=== PATIENT | female | born 1945 | race Caucasian/White ===

== ENCOUNTER 2020-03-03 18:34 | Inpatient (IN) | payer MEDICARE, BC ==
[~2020-03-03] VITALS: Ht 167.6 cm; Wt 71.9 kg
--- NOTE | 2020-03-04 01:25 | NUR ---
TELE ADMIT from [facility]. MD already contacted for admit orders. Patient is A&O X's 4 with no s/s of distress and reports no pain. Educated patient on POC/to use call light when in need of any assistance and oriented patient to unit: call light/tv/remote/lights. patient verbalized understanding. Patient's diaper was removed and reviewed policy with her. Patient verbalized understanding. Bed is in lowest/locked position with side rails up X's 2 and call light is within reach of patient. Bed alarm is on. 20G to left forearm flushed with NS. Will continue care.
[2020-03-04] MEDS ORDERED: MORPHINE SULF INJ 2 MG/ML SYRINGE 1ML IV PRN (03:00)
[2020-03-04] MEDS ORDERED: NITROGLYCERIN 0.4 MG SL TAB SL PRN (03:00)
[2020-03-04] MEDS ORDERED: DEXTROSE (50%) 50ML SYRG IV PRN (03:00)
[2020-03-04] MEDS: SODIUM CHLORIDE 0.9% 1,000 ML IV SCH ×2 (03:21→16:02)
[2020-03-04 03:30] VITALS: BP 119/66
[2020-03-04] MEDS ORDERED: cefTRIAXone 1GM/50ML D5W 50 ML IV SCH (04:00)
[2020-03-04] MEDS ORDERED: AZITHROMYCIN 500MG/ 250ML 250 ML IV SCH (04:00)
[2020-03-04] MEDS ORDERED: EMPA1TAB PO (04:09)
[2020-03-04] MEDS ORDERED: LORA0.5T20 PO (04:09)
[2020-03-04] MEDS ORDERED: METF-370 PO (04:09)
[2020-03-04 05:00] VITALS: BP 122/60
--- NOTE | 2020-03-04 05:13 | NUR ---
MRSA SWAB obtained and sent to lab via bullet system
--- NOTE | 2020-03-04 05:14 | NUR ---
TANMAY DAMIAN SWAB obtained by this RN. refinery operator helper cracking unit will walk it to lab
[2020-03-04] MEDS: ACCU-CHEK COMFORT CURVE STRIP VI SCH ×4 (06:40→21:14)
[2020-03-04] MEDS: InsuLIN REG 1unit/0.01ml Soln (100units/ml) SC SCH ×4 (06:40→21:16)
--- NOTE | 2020-03-04 06:40 | NUR ---
IV insertion IV access obtained, via clean sterile technique by inserting 22 gauge catheter at RIGHT WRIST after ONE attempt. IV secured properly. No trauma to site. Patient tolerated well.
--- NOTE | 2020-03-04 06:41 | NUR ---
IV removal 18g AT RIGHT FA NOTED TO LEAK. IV DC'd with clean sterile technique, catheter fully intact. Pressure dressing applied to site. Patient tolerated well.
[2020-03-04 07:01] LABS: Basophils # (auto) 0 10 ^3/uL (0-0.2); Basophils % (auto) 0.3 % (0.0-2.0); Eosinophils # (auto) 0.1 10 ^3/uL (0-0.8); Eosinophils % (auto) 0.8 % (0.0-7.0); Hemoglobin 10.9 g/dL (12.2-16.2); Lymphocytes # (auto) 0.4 10 ^3/uL (0.4-5.4); Lymphocytes % (auto) 6.1 % (10.0-50.0); Mean Corpuscular Hemoglobin 31.5 pg (28.0-32.0); Mean Corpuscular Hgb Conc. 34.2 g/dL (32.0-36.0); Mean Corpuscular Volume 91.9 fL (80.0-100.0); Monocytes # (auto) 0.5 10 ^3/uL (0-1.3); Monocytes % (auto) 6.9 % (0.0-12.0); Neutrophils # (auto) 5.7 10 ^3/uL (1.6-8.6); Neutrophils % (auto) 85.9 % (37.0-80.0); Nucleated Red Blood Cells % 0.1 %; Platelet Count (auto) 104 10^3/uL (140-450); Red Blood Cells 3.48 10^6/uL (4.0-5.20); Red Cell Distribution Width 15.5 % (11.8-14.3); White Blood Cell 6.7 10^3/uL (4.4-10.8)
[2020-03-04 07:04] LABS: Chloride 113 mmol/L (98-107); Potassium 3.6 mmol/L (3.5-5.1); Sodium 139 mmol/L (136-145)
[2020-03-04 07:18] LABS: Alanine Aminotransferase 8 U/L (13-56); Albumin 1.9 g/dL (3.4-5.0); Alkaline Phosphatase 74 U/L (45-117); Anion Gap 8 (5-15); Aspartate Aminotransferase < 3 U/L (15-37); Bilirubin, Total 0.5 mg/dL (0.2-1.0); Blood Urea Nitrogen 23 mg/dL (7-18); Calcium 7.3 mg/dL (8.5-10.1); Carbon Dioxide 18 mmol/L (21-32); GFR African American 76 mL/min; GFR Non-African American 63 mL/min; Glucose 277 mg/dL (74-106); Total Protein 5.3 g/dL (6.4-8.2)
[2020-03-04 08:00] VITALS: BP 123/65
--- NOTE | 2020-03-04 08:20 | NUR ---
called lab for covid swab.
[2020-03-04] MEDS: cefTRIAXone 1GM/50ML D5W 50 ML IV SCH (08:27)
--- NOTE | 2020-03-04 09:00 | NUR ---
Dr Lancaster at bedside.
--- NOTE | 2020-03-04 09:35 | NUR ---
COVID SWAB SENT BY LUZ MARIA SMITH TO LAB.
[2020-03-04] MEDS: AZITHROMYCIN 500MG/ 250ML 250 ML IV SCH (10:17)
[2020-03-04 12:00] VITALS: BP 118/64
[2020-03-04 17:00] VITALS: BP 133/70
--- NOTE | 2020-03-04 18:30 | NUR ---
Angelica SR. PRICING ANALYST at bedside.
--- NOTE | 2020-03-04 19:35 | NUR ---
OPENING NOTE Received report from day shift RN. Patient is A&O X's 3-4 with no s/s of distress and reports no pain. Patient unable to tell me date/year and was reoriented. Educated patient on POC and to use call light when in need of any assistance. Patient verbalized understanding. Bed is in lowest/locked position with side rails up X's 2 and call light is within reach of patient. Bed alarm set for safety. HOB elevated. Patient drinking water at this time. Patient has dinner at bedside. She reports she is not hungry right now but will eat later. Patient is receiving 2L O2 via [place]. Patient placed on continuous pulse ox. Saturation is at 97%. Will continue care.
[2020-03-04] MEDS: PANTOPRAZOLE 40 MG/10 ML VIAL INJ IV SCH (21:07)
[2020-03-04 22:07] VITALS: BP 132/72
[2020-03-05 05:00] VITALS: BP 129/64
[2020-03-05] MEDS: SODIUM CHLORIDE 0.9% 1,000 ML IV SCH ×2 (05:48→19:00)
--- NOTE | 2020-03-05 06:02 | NUR ---
LOW GRADE FEVER Patient has a temperature of 100.0. Cooling measures initiated.
[2020-03-05] MEDS: InsuLIN REG 1unit/0.01ml Soln (100units/ml) SC SCH ×4 (06:51→21:06)
[2020-03-05] MEDS: ACCU-CHEK COMFORT CURVE STRIP VI SCH ×4 (06:55→21:04)
--- NOTE | 2020-03-05 07:06 | NUR ---
Respiratory note: PT IS RESTING COMFORTABLY. NO RESPIRATORY DISTRESS NOTED. SPO2 98% ON 2L NC, HR 84, RR 18, BS CLEAR/DIMINISHED BILATERALLY. NO FURTHER RESPIRATORY INTERVENTIONS INDICATED. WILL CONTINUE TO MONITOR PT.
--- NOTE | 2020-03-05 07:30 | NUR ---
OPENING NOTE ASSUMED CARE PT. ALERT AND ORIENTED. NO S/S OF SOB/DISTRESS NOTED. BED SET TO LOWEST POSITION/LOCKED. BEDSIDE RAILS UP X2. CALL LIGHT WITHIN REACH. INSTRUCTED PATIENT TO CALL FOR ASSISTANCE. PATIENT VERBALIZED UNDERSTANDING. WILL CONTINUE TO MONITOR Q1HR AND PRN.
[2020-03-05 08:00] VITALS: BP 121/55
--- NOTE | 2020-03-05 09:00 | NUR ---
MD DR. RAPHAEL AT BESIDE. DISCUSSED POC WITH PATIENT. NEW ORDERS GIVE/CARRIED OUT.
[2020-03-05] MEDS ORDERED: AMIODARONE 450mg/250ml AE 250 ML IV SCH ×4 (09:05→15:05)
--- NOTE | 2020-03-05 09:05 | NUR ---
COVID SWAB RESULTS PLEASE CALL DR. RAPHAEL WITH COVID RESULT IF NEGATIVE.
[2020-03-05] MEDS: cefTRIAXone 1GM/50ML D5W 50 ML IV SCH (09:57)
[2020-03-05] MEDS: PANTOPRAZOLE 40 MG/10 ML VIAL INJ IV SCH ×2 (09:57→21:02)
[2020-03-05] MEDS: AZITHROMYCIN 500MG/ 250ML 250 ML IV SCH (09:58)
[2020-03-05 10:45] LABS: Basophils # (auto) 0.1 10 ^3/uL (0-0.2); Basophils % (auto) 0.9 % (0.0-2.0); Eosinophils # (auto) 0 10 ^3/uL (0-0.8); Eosinophils % (auto) 0.3 % (0.0-7.0); Hematocrit 30.4 % (36.0-46.0); Hemoglobin 10.3 g/dL (12.2-16.2); Lymphocytes # (auto) 0.7 10 ^3/uL (0.4-5.4); Lymphocytes % (auto) 5.9 % (10.0-50.0); Mean Corpuscular Hgb Conc. 33.9 g/dL (32.0-36.0); Mean Corpuscular Volume 91.4 fL (80.0-100.0); Monocytes # (auto) 0.7 10 ^3/uL (0-1.3); Neutrophils # (auto) 9.9 10 ^3/uL (1.6-8.6); Neutrophils % (auto) 86.9 % (37.0-80.0); Nucleated Red Blood Cells % 0.1 %; Platelet Count (auto) 81 10^3/uL (140-450); Red Blood Cells 3.33 10^6/uL (4.0-5.20); White Blood Cell 11.4 10^3/uL (4.4-10.8)
[2020-03-05 11:37] LABS: Albumin 1.8 g/dL (3.4-5.0); Calcium 7.4 mg/dL (8.5-10.1); Magnesium 1.8 mg/dL (1.6-2.6); Potassium 3.6 mmol/L (3.5-5.1)
[2020-03-05 11:41] LABS: BUN/Creatinine Ratio 19.3; Bilirubin, Total 0.5 mg/dL (0.2-1.0); Total Protein 5.1 g/dL (6.4-8.2)
--- NOTE | 2020-03-05 16:10 | NUR ---
Assessment Patient is a 74-year-old female who is alert and oriented. Prior to admission patient live home alone and functioned with assistance. Per patient her neighbor Andra helps her with her ADLs. Patient informed me she has two walkers and one cane for home use. Per patient she feels safe returning home. Per patient she will return to her prior living arrangements post discharge and will need a [employer] Voucher. Advised patient there is a social service consult for home health safety evaluation. Information and choice letter was given to patient. Patient did not have a home health preference. Informed patient clinical information will be faxed to [facility]. Informed patient she has the right to participate in all discharge planning. Patient verbalized understanding and agreed to discharge plan. Faxed clinical information to [facility]. Per Marylou with [facility] patient has been accepted and service to start within 24-48hrs upon d/c day. Addendum: 03/05/20 at 1611 by CANDI CASTANEDA Amended: Links added.
--- NOTE | 2020-03-05 16:54 | NUR ---
INFORMED DR. LARSON OF COVID RESULTS.
--- NOTE | 2020-03-05 17:34 | NUR ---
REPORT GIVEN TO WILL MORALES. PATIENT TRANSFERRED TO ROOM 214 B VIA BED. NO S/S SOB/DISTRESS NOTED.
--- NOTE | 2020-03-05 17:40 | NUR ---
TELE THIS NURSE INFORMED DIGITAL MEDIA ANALYST MONITOR PATIENT TRANSFERRED TO ROOM 214 B WITH NURSE MORALES.
[2020-03-05] MEDS: AMIODARONE 450mg/250ml AE 250 ML IV SCH (18:16)
[2020-03-05 18:27] LABS: Urine Bacteria NONE SEEN /hpf (None Seen); Urine Blood 3+ /uL (Negative); Urine Mucus FEW (None Seen); Urine Specific Gravity 1.015 (1.001-1.035); Urine WBC 777 /hpf (0 - 5)
--- NOTE | 2020-03-05 21:00 | NUR ---
Family updated on pt status Cousin Nathaly of [place] updated on patient's status and condition. did not give any information.no password created.pt stated she doesnt know Nathaly
[2020-03-05] MEDS: DOCUSATE SOD 100 MG CAP PO SCH ×2 (21:03→21:20)
[2020-03-05 21:28] VITALS: BP 126/63
--- NOTE | 2020-03-05 22:32 | NUR ---
pt's IV went bad. tried to start an new IV but pt is refusing and became angry. will try again to convince her later
--- NOTE | 2020-03-05 23:19 | NUR ---
paged Dr. Dominguez regarding pt's amiodarone drip. pt is refusing IV insertion. educated on importance of iv and drip but refused. alert and oriented and bacame irritated.
--- NOTE | 2020-03-06 00:13 | NUR ---
txted Dr. Dominguez. informed on pt's status. pt is hardstick and refusing iv insertion. CN made aware
--- NOTE | 2020-03-06 00:55 | NUR ---
Called/paged Dr. LEMUS called re:PT REFUSING IV ACCESS AND ON AMIODARONE GTT . Waiting for call back. Continue care.
--- NOTE | 2020-03-06 00:57 | NUR ---
returned call Dr. LEMUS returned call, updated on patient status and reason for call, per MD pt needs to have an IV access, ordered amiodarone po x 1 and midline.Carried out. Will inform primary RN Makil regarding orders and to attempt another IV once pt agrees. Continue care.
--- NOTE | 2020-03-06 01:02 | NUR ---
NOTIFIED FANTA RE: DR. LEMUS'S ORDERS. VERBALIZES UNDERSTANDING.
[2020-03-06] MEDS ORDERED: AMIODARONE HCL 200 MG TAB PO ONE (01:15)
--- NOTE | 2020-03-06 01:30 | NUR ---
IV removal IV DC'd with sterile technique, catheter fully intact. Pressure dressing applied to site. Patient tolerated procedure well.
--- NOTE | 2020-03-06 05:30 | NUR ---
pt is asking for pain med for her back, score of 6. texted Dr. Dominguez, awaiting for orders
[2020-03-06 06:00] VITALS: BP 128/67
[2020-03-06] MEDS: ACCU-CHEK COMFORT CURVE STRIP VI SCH ×4 (06:25→21:45)
[2020-03-06] MEDS: InsuLIN REG 1unit/0.01ml Soln (100units/ml) SC SCH ×4 (06:27→21:46)
[2020-03-06] MEDS: SODIUM CHLORIDE 0.9% 1,000 ML IV SCH ×2 (08:20→21:13)
--- NOTE | 2020-03-06 08:27 | NUR ---
AT BEDSIDE DR LARSON AT BEDSIDE UPDATING PATIENT AND FAMILY ON POC. BOTH VERBALIZED UNDERSTANDING.
[2020-03-06] MEDS: cefTRIAXone 1GM/50ML D5W 50 ML IV SCH (08:41)
[2020-03-06 09:00] VITALS: BP 130/67
--- NOTE | 2020-03-06 09:00 | NUR ---
Midline Placement: Patient educated on need for midline placement. All risks and benefits explained and all questions and concerns addresses prior to procedure. 18g/8cm midline inserted via right basilic vein using Ultrasound. Sterile technique utilized. Blood return obtained from THE SINGLE lumen and flushed easily with NS using proper technique. Midline secured with saline lock; biodisc and occlusive dressing applied. Primary RN Sue notified. Midline lot # [id number]
[2020-03-06 09:14] LABS: Basophils # (auto) 0.1 10 ^3/uL (0-0.2); Basophils % (auto) 0.5 % (0.0-2.0); Eosinophils # (auto) 0 10 ^3/uL (0-0.8); Eosinophils % (auto) 0.1 % (0.0-7.0); Hematocrit 31.2 % (36.0-46.0); Hemoglobin 10.5 g/dL (12.2-16.2); Lymphocytes # (auto) 0.3 10 ^3/uL (0.4-5.4); Lymphocytes % (auto) 1.8 % (10.0-50.0); Mean Corpuscular Hemoglobin 30.9 pg (28.0-32.0); Mean Corpuscular Hgb Conc. 33.6 g/dL (32.0-36.0); Mean Corpuscular Volume 91.9 fL (80.0-100.0); Monocytes # (auto) 0.6 10 ^3/uL (0-1.3); Monocytes % (auto) 3.9 % (0.0-12.0); Neutrophils # (auto) 13.8 10 ^3/uL (1.6-8.6); Neutrophils % (auto) 93.7 % (37.0-80.0); Nucleated Red Blood Cells % 0.1 %; Platelet Count (auto) 121 10^3/uL (140-450); Red Blood Cells 3.39 10^6/uL (4.0-5.20); Red Cell Distribution Width 15.4 % (11.8-14.3); White Blood Cell 14.7 10^3/uL (4.4-10.8)
[2020-03-06 09:29] LABS: INR 1.05 (0.9-1.15)
[2020-03-06 09:32] LABS: Albumin 1.9 g/dL (3.4-5.0); Calcium 7.8 mg/dL (8.5-10.1); Magnesium 1.7 mg/dL (1.6-2.6); Potassium 3.3 mmol/L (3.5-5.1)
[2020-03-06 09:36] LABS: BUN/Creatinine Ratio 16.7; Bilirubin, Total 0.4 mg/dL (0.2-1.0); Total Protein 5.5 g/dL (6.4-8.2)
[2020-03-06] MEDS: AZITHROMYCIN 500MG/ 250ML 250 ML IV SCH (10:00)
[2020-03-06] MEDS: AMIODARONE 450mg/250ml AE 250 ML IV SCH ×2 (10:03→23:09)
[2020-03-06] MEDS: PANTOPRAZOLE 40 MG/10 ML VIAL INJ IV SCH ×2 (10:04→21:44)
[2020-03-06] MEDS: DOCUSATE SOD 100 MG CAP PO SCH ×2 (10:04→21:45)
[2020-03-06 13:00] VITALS: BP 126/69
[2020-03-06] MEDS: AMIODARONE HCL 200 MG TAB PO SCH ×2 (14:28→21:44)
[2020-03-06 17:00] VITALS: BP 112/57
--- NOTE | 2020-03-06 19:30 | NUR ---
Opening Shift Note Assumed care of patient, awake and alert. No S/S of distress/SOB or pain. Instructed on POC and to call for assist PRN, will continue to monitor for changes Q1hr and PRN.
[2020-03-06 22:00] VITALS: BP 113/60
--- NOTE | 2020-03-06 23:00 | NUR ---
pt signed the consent for tomorrow's procedure.
[2020-03-07] MEDS: AMIODARONE HCL 200 MG TAB PO SCH ×4 (04:28→21:55)
[2020-03-07 05:00] VITALS: BP 111/65
[2020-03-07] MEDS: ACCU-CHEK COMFORT CURVE STRIP VI SCH ×4 (06:00→21:57)
[2020-03-07] MEDS: InsuLIN REG 1unit/0.01ml Soln (100units/ml) SC SCH ×4 (06:23→21:43)
[2020-03-07 07:18] LABS: Basophils # (auto) 0 10 ^3/uL (0-0.2); Basophils % (auto) 0.4 % (0.0-2.0); Eosinophils # (auto) 0 10 ^3/uL (0-0.8); Eosinophils % (auto) 0.9 % (0.0-7.0); Hematocrit 27.7 % (36.0-46.0); Hemoglobin 9.5 g/dL (12.2-16.2); Lymphocytes # (auto) 0.5 10 ^3/uL (0.4-5.4); Lymphocytes % (auto) 10.7 % (10.0-50.0); Mean Corpuscular Hemoglobin 31.4 pg (28.0-32.0); Mean Corpuscular Hgb Conc. 34.1 g/dL (32.0-36.0); Monocytes # (auto) 0.4 10 ^3/uL (0-1.3); Monocytes % (auto) 8.6 % (0.0-12.0); Neutrophils # (auto) 3.9 10 ^3/uL (1.6-8.6); Neutrophils % (auto) 79.4 % (37.0-80.0); Nucleated Red Blood Cells % 0.1 %; Platelet Count (auto) 95 10^3/uL (140-450); Red Blood Cells 3.01 10^6/uL (4.0-5.20); Red Cell Distribution Width 15.2 % (11.8-14.3); White Blood Cell 4.9 10^3/uL (4.4-10.8)
--- NOTE | 2020-03-07 07:35 | NUR ---
Off Unit Patient left unit for laborer brush clearing, awake, alert, and oriented.
[2020-03-07 07:44] LABS: Potassium 3.7 mmol/L (3.5-5.1)
[2020-03-07 07:45] LABS: BUN/Creatinine Ratio 15.4; Calcium 7.7 mg/dL (8.5-10.1); Magnesium 1.9 mg/dL (1.6-2.6)
--- NOTE | 2020-03-07 07:47 | NUR ---
brought the pt down to cathlab. Endorsed care to day RN, no sign of distress at this time
[2020-03-07] MEDS ORDERED: IOHEXOL 350 MG/ML 100ML IJ ONE (08:10)
[2020-03-07] MEDS ORDERED: LIDOCAINE 2%HCL (LOCAL ANESTH.) INJ 20ML MDV ONE (08:10)
[2020-03-07] MEDS ORDERED: fentaNYL CITRATE 100 MCG/2 ML VL ONE (08:27)
[2020-03-07] MEDS ORDERED: VERAPAMIL 2.5MG/ML INJ 2ML VIAL IV ONE (08:27)
[2020-03-07] MEDS ORDERED: HEPARIN SODIUM (PORCINE) 5000 UNITS/ML 1ML VIAL ONE (08:27)
[2020-03-07] MEDS ORDERED: ANGIOMAX 250 MG VIAL IV ONE (08:27)
[2020-03-07] MEDS ORDERED: MIDAZOLAM HCL 1MG/1ML-2 ML VIAL ONE (08:28)
[2020-03-07] MEDS ORDERED: SODIUM CHL 0.9% 50 ML ONE ×2 (08:28→09:04)
[2020-03-07] MEDS ORDERED: ADENOSINE 90 MG/30 ML INJ IV ONE (09:04)
--- NOTE | 2020-03-07 09:40 | NUR ---
Pt. received in Satellite Installation Technician Post-Op awake, drowsy but arousable, oriented to person, place and event. Pt. in supine position and moves all extremities spontaneously. Respirations even and unlabored. RIGHT wrist VASC band intact with no visible bleeding or oozing at radial puncture site. RIGHT groin soft with dressing CDI. Pt. keeps RIGHT leg straight as instructed. RLE pulses to DP and PT are palpable 2+. Instructed re: procedure outcome and plan of care; pt. verbalized understanding and is compliant, stating that she is thirsty and hungry. NAD noted.
--- NOTE | 2020-03-07 10:00 | NUR ---
RT groin and RT wrist VASC band site unchanged. Respirations eupneic. Pt. continues to deny discomfort and tolerated water well. IV NS lock to LEFT hand intact; site benign. NAD noted.
--- NOTE | 2020-03-07 10:29 | NUR ---
SBAR report given to WILL Easton. Pt. remains stable for transfer back to room. RT groin and RT wrist VASC band benign. Pt. states feels "okay." NAD noted.
--- NOTE | 2020-03-07 10:46 | NUR ---
Pt. remains awake and quiet and stable for transfer back to room with assist by timothy Cardenas. RT wrist and RT groin unchanged. Pt. endorsed to WILL Easton.
--- NOTE | 2020-03-07 10:50 | NUR ---
On Unit Patient brought back to unit from analytical laboratory technician. Patient is awake but drowsy. Call light placed within reach for safety, bed alarm on and patient encouraged to call for assistance. Dressing to right groin dry and intact. Patient to lay flat until 1130. Vasc Band on to right wrist, deflation to begin. No complaints of pain at this time. Will continue to monitor.
[2020-03-07] MEDS: PANTOPRAZOLE 40 MG/10 ML VIAL INJ IV SCH ×2 (11:04→21:55)
[2020-03-07] MEDS: DOCUSATE SOD 100 MG CAP PO SCH ×2 (11:05→21:55)
[2020-03-07] MEDS: AZITHROMYCIN 500MG/ 250ML 250 ML IV SCH (11:05)
[2020-03-07] MEDS: cefTRIAXone 1GM/50ML D5W 50 ML IV SCH (11:05)
[2020-03-07] MEDS: SODIUM CHLORIDE 0.9% 1,000 ML IV SCH (11:07)
[2020-03-07 13:00] VITALS: BP 132/67
[2020-03-07 13:25] VITALS: BP 120/68
--- NOTE | 2020-03-07 14:00 | NUR ---
Amiodarone Dose given at 1118
--- NOTE | 2020-03-07 14:16 | NUR ---
Nutrition Assessment Notes Please refer to link for full assessment notes. Est Energy needs: 1217-1671 kcals (20-23 kcal/kgBW) Est Protein needs: 66-72 gms/day (1.0-1.1 gm/kgBW) Will continue to monitor and reassess prn. Addendum: 03/07/20 at [address] Amended: Links added.
[2020-03-07] MEDS: SODIUM CHLOR 0.9% PF (SALINE LOCK) 10ML VIAL/SYR IV SCH ×2 (14:57→21:56)
--- NOTE | 2020-03-07 15:20 | NUR ---
Foreign Body in Rectum Patient had a bowel movement, a coin was reportedly seen in stool by the GI doctor and RN covering while at lunch. GI MD did not continue to do rectal examination since coin was passed. Patient uncomplaining.
[2020-03-07 17:00] VITALS: BP 134/72
[2020-03-07] MEDS: AMIODARONE 450mg/250ml AE 250 ML IV SCH (17:44)
[2020-03-07 21:19] VITALS: BP 114/59
[2020-03-07] MEDS: HYDROcodone-ACET 5/325MG TAB PO PRN (21:56)
[2020-03-08] MEDS: SODIUM CHLORIDE 0.9% 1,000 ML IV SCH ×2 (00:20→17:01)
[2020-03-08 04:42] VITALS: BP 110/53
[2020-03-08] MEDS: AMIODARONE HCL 200 MG TAB PO SCH ×3 (06:00→21:58)
[2020-03-08] MEDS: SODIUM CHLOR 0.9% PF (SALINE LOCK) 10ML VIAL/SYR IV SCH ×3 (06:00→21:58)
[2020-03-08 06:40] LABS: Basophils # (auto) 0 10 ^3/uL (0-0.2); Basophils % (auto) 0.8 % (0.0-2.0); Eosinophils # (auto) 0.1 10 ^3/uL (0-0.8); Eosinophils % (auto) 1.4 % (0.0-7.0); Hematocrit 29.4 % (36.0-46.0); Lymphocytes # (auto) 0.6 10 ^3/uL (0.4-5.4); Lymphocytes % (auto) 13.5 % (10.0-50.0); Mean Corpuscular Hemoglobin 31.3 pg (28.0-32.0); Mean Corpuscular Hgb Conc. 34.1 g/dL (32.0-36.0); Mean Corpuscular Volume 91.9 fL (80.0-100.0); Monocytes # (auto) 0.3 10 ^3/uL (0-1.3); Monocytes % (auto) 7.9 % (0.0-12.0); Neutrophils # (auto) 3.2 10 ^3/uL (1.6-8.6); Neutrophils % (auto) 76.4 % (37.0-80.0); Platelet Count (auto) 104 10^3/uL (140-450); Red Blood Cells 3.19 10^6/uL (4.0-5.20); White Blood Cell 4.1 10^3/uL (4.4-10.8)
[2020-03-08] MEDS: ACCU-CHEK COMFORT CURVE STRIP VI SCH ×4 (06:51→22:04)
[2020-03-08 06:52] LABS: BUN/Creatinine Ratio 14.9; Calcium 7.9 mg/dL (8.5-10.1); Magnesium 1.6 mg/dL (1.6-2.6); Potassium 3.7 mmol/L (3.5-5.1)
[2020-03-08] MEDS: InsuLIN REG 1unit/0.01ml Soln (100units/ml) SC SCH ×4 (06:59→22:07)
--- NOTE | 2020-03-08 07:45 | NUR ---
Opening note Assumed care of patient from NOC RN. Patient is AOx4 no s/s of distress or SOB noted. Patient is on 2l via nasal cannula, bed is in lowest locked position, side rails up x2 and call light is within reach. Updated patient on plan of care and patient verbalized understanding. Will continue to monitor.
[2020-03-08 09:00] VITALS: BP 127/66
[2020-03-08] MEDS: cefTRIAXone 1GM/50ML D5W 50 ML IV SCH (09:25)
[2020-03-08] MEDS: AMIODARONE 450mg/250ml AE 250 ML IV SCH ×2 (09:25→21:57)
[2020-03-08] MEDS: PANTOPRAZOLE 40 MG/10 ML VIAL INJ IV SCH ×2 (09:26→21:58)
[2020-03-08] MEDS: DOCUSATE SOD 100 MG CAP PO SCH ×2 (09:26→22:04)
--- NOTE | 2020-03-08 11:30 | NUR ---
Physician rounding Dr. Lancaster at nurses station. Per MD patient can be D/C'd with cordarone 200mg BID. Per MD Primary MD can send patient on that medication. Will relay message to MD when Dr. olguin rounds.
[2020-03-08] MEDS ORDERED: AMIODARONE HCL 200 MG TAB PO SCH (11:45)
[2020-03-08] MEDS: AZITHROMYCIN 500MG/ 250ML 250 ML IV SCH (12:56)
[2020-03-08 13:10] VITALS: BP 133/70
[2020-03-08 16:44] VITALS: BP 139/68
--- NOTE | 2020-03-08 19:30 | NUR ---
Opening note Assumed care of patient from morning shift RN. Patient is AOx4 no s/s of distress or SOB noted. Patient is on 2l via nasal cannula, bed is in lowest locked position, side rails up x2 and call light is within reach. Updated patient on plan of care and patient verbalized understanding. Will continue to monitor.
[2020-03-08] MEDS: HYDROcodone-ACET 5/325MG TAB PO PRN (20:08)
--- NOTE | 2020-03-08 20:10 | NUR ---
Lower Back Pain patient complains of lower back pain. Gave pain medication as prescribed PRN and repositioned patient on left side to relieve back pain. Will continue to monitor.
[2020-03-08 23:41] VITALS: BP 127/82
[2020-03-09] MEDS: SODIUM CHLORIDE 0.9% 1,000 ML IV SCH ×2 (03:30→16:20)
[2020-03-09 05:33] VITALS: BP 146/66
[2020-03-09] MEDS: SODIUM CHLOR 0.9% PF (SALINE LOCK) 10ML VIAL/SYR IV SCH ×3 (05:51→22:14)
[2020-03-09] MEDS: ACCU-CHEK COMFORT CURVE STRIP VI SCH ×4 (06:33→22:14)
[2020-03-09] MEDS: InsuLIN REG 1unit/0.01ml Soln (100units/ml) SC SCH ×4 (06:37→22:17)
[2020-03-09 06:46] LABS: Basophils # (auto) 0 10 ^3/uL (0-0.2); Basophils % (auto) 0.6 % (0.0-2.0); Eosinophils # (auto) 0.1 10 ^3/uL (0-0.8); Eosinophils % (auto) 1.2 % (0.0-7.0); Hematocrit 30.1 % (36.0-46.0); Hemoglobin 10.4 g/dL (12.2-16.2); Lymphocytes # (auto) 0.5 10 ^3/uL (0.4-5.4); Lymphocytes % (auto) 7.5 % (10.0-50.0); Mean Corpuscular Hemoglobin 31.5 pg (28.0-32.0); Mean Corpuscular Hgb Conc. 34.4 g/dL (32.0-36.0); Mean Corpuscular Volume 91.5 fL (80.0-100.0); Monocytes # (auto) 0.4 10 ^3/uL (0-1.3); Monocytes % (auto) 5.9 % (0.0-12.0); Neutrophils # (auto) 6.2 10 ^3/uL (1.6-8.6); Neutrophils % (auto) 84.8 % (37.0-80.0); Nucleated Red Blood Cells % 0.1 %; Platelet Count (auto) 125 10^3/uL (140-450); Red Blood Cells 3.29 10^6/uL (4.0-5.20); Red Cell Distribution Width 15.1 % (11.8-14.3); White Blood Cell 7.3 10^3/uL (4.4-10.8)
[2020-03-09 07:13] LABS: Calcium 7.6 mg/dL (8.5-10.1); Magnesium 1.7 mg/dL (1.6-2.6); Potassium 3.5 mmol/L (3.5-5.1)
[2020-03-09 07:16] LABS: BUN/Creatinine Ratio 15.9
--- NOTE | 2020-03-09 07:30 | NUR ---
Opening note Assumed care of patient from NOC WILL Cortez. Patient is AOx4 no s/s of distress or SOB noted. Patient is on 2l via nasal cannula, bed is in lowest locked position, side rails up x2 and call light is within reach. Updated patient on plan of care and patient verbalized understanding. Will continue to monitor.
--- NOTE | 2020-03-09 08:00 | NUR ---
patient status patient complaint of Hector, patient stated "I want the catheter out, it hurts and i want it out!" Educated patient regarding the use of hector and that it cannot be removed without physician order. Educated patient that attending physician will be notified. Patient verbalized understanding.
[2020-03-09 09:00] VITALS: BP 152/62
--- NOTE | 2020-03-09 09:01 | NUR ---
Physician rounding Dr. Lancaster at nurses station. Per MD patient is clear cardio silva, and is recommending patient follow up with GI out patient. MD also recommends hector removal per primary team guidance. Will notify attending MD. New orders received will follow thorough.
--- NOTE | 2020-03-09 09:22 | NUR ---
left message to Left message to Dr. Dominguez regarding patient status. Awaiting call back.
[2020-03-09] MEDS: PANTOPRAZOLE 40 MG/10 ML VIAL INJ IV SCH ×2 (09:44→22:13)
[2020-03-09] MEDS: AMIODARONE HCL 200 MG TAB PO SCH ×2 (09:44→22:14)
[2020-03-09] MEDS: DOCUSATE SOD 100 MG CAP PO SCH ×2 (09:44→22:14)
[2020-03-09] MEDS: cefTRIAXone 1GM/50ML D5W 50 ML IV SCH (09:44)
[2020-03-09] MEDS: ASPirin-EC 81 mg tab PO SCH (09:44)
[2020-03-09] MEDS: HYDROcodone-ACET 5/325MG TAB PO PRN ×2 (09:45→22:02)
--- NOTE | 2020-03-09 10:24 | NUR ---
Received call back Updated Dr. Dominguez regarding patient status and Dr. Lancaster recommendation. Per hector can be removed, and DAVID Dominguez is covering for . Will follow through.
--- NOTE | 2020-03-09 11:20 | NUR ---
Hector catheter dc'd Order to discontinue hector catheter. Hector dc'd with clean technique following deflation of balloon. Patient tolerated well with no complaints of pain. Continue care.
[2020-03-09] MEDS: AZITHROMYCIN 500MG/ 250ML 250 ML IV SCH (11:22)
[2020-03-09 13:00] VITALS: BP 130/63
[2020-03-09 16:52] VITALS: BP 142/61
--- NOTE | 2020-03-09 19:05 | NUR ---
end of shift note care endorsed to NOC WILL Cortez. No s/s of distress noted.
--- NOTE | 2020-03-09 19:10 | NUR ---
Opening note Assumed care of patient from Lara RN. Patient is AOx4 no s/s of distress or SOB noted. Patient is on 2l via nasal cannula, bed is in lowest locked position, side rails up x2 and call light is within reach. Updated patient on plan of care and patient verbalized understanding. Will continue to monitor.
[2020-03-09 21:00] VITALS: BP 123/82
[2020-03-10 05:00] VITALS: BP 119/60
[2020-03-10] MEDS: SODIUM CHLOR 0.9% PF (SALINE LOCK) 10ML VIAL/SYR IV SCH ×2 (06:13→17:57)
[2020-03-10] MEDS: SODIUM CHLORIDE 0.9% 1,000 ML IV SCH ×2 (06:14→17:57)
[2020-03-10] MEDS: InsuLIN REG 1unit/0.01ml Soln (100units/ml) SC SCH ×3 (06:32→17:57)
[2020-03-10] MEDS: ACCU-CHEK COMFORT CURVE STRIP VI SCH ×3 (06:32→17:56)
[2020-03-10 09:15] VITALS: BP 144/68
[2020-03-10] MEDS: AMIODARONE HCL 200 MG TAB PO SCH (09:23)
[2020-03-10] MEDS: cefTRIAXone 1GM/50ML D5W 50 ML IV SCH (09:23)
[2020-03-10] MEDS: DOCUSATE SOD 100 MG CAP PO SCH (09:23)
[2020-03-10] MEDS: PANTOPRAZOLE 40 MG/10 ML VIAL INJ IV SCH (09:23)
[2020-03-10] MEDS: ASPirin-EC 81 mg tab PO SCH (09:24)
[2020-03-10] MEDS: AZITHROMYCIN 500MG/ 250ML 250 ML IV SCH (11:10)
--- NOTE | 2020-03-10 12:03 | NUR ---
Nutrition Followup Notes Pt wt is 71.9 kg. Pt is with a Cardiac 2gNa diet, appetite is fair aeb ave 67% PO intake over 3 meals per RN doc. Pt with no s/s of distress per RN doc. Est Energy needs: 3648-3816 kcals (20-23 kcal/kgBW) Est Protein needs: 66-72 gms/day (1.0-1.1 gm/kgBW) Will continue to monitor and reassess prn LAB: GLUC 171, ALB 1.9 L GI: Pt had 1 BM on 03/09 per RN doc. BS: 16 mod risk. PES: Altered nutrition related lab values r/t current/chronic medical condition aeb hyperglycemia, hypocalcemia, severe hypoalbuminemia Comments Will continue to monitor PO status, skin status, pertinent labs and weight trends. Will f/u in 3-5 days. 1) Continue to carefully monitor pt PO intake to meet at least 75% of meals 2) If albumin continues trending down consider Prostat 1 pkt BID 3) Continue current plan of care
[2020-03-10 13:00] VITALS: BP 146/72
[2020-03-10 17:00] VITALS: BP 135/63
--- NOTE | 2020-03-10 19:20 | NUR ---
Discharge Patient aware of tomorrows appointment at [facility] post-discharge clinic. Emphasized importance of following up with cardiology. Patient verbalized understanding. All questions answered. Midline removed with catheter intact. Tele box sent to ICU. No distress noted upon departure. Patient has hard copy of medication prescription.
== END 2020-03-10 19:20 | disposition home health service (06) | DRG 871 ==
LOC: TELE-EAST 21:36 → TELE-CENTR 03-05 17:26
PROVIDERS: ADMIT Specialist; ATTEND Internal Medicine
PROC: 4A023N7 Measurement of Cardiac Sampling and Pressure, Left Heart, Percutaneous Approach (ICD-10-PCS; principal; 2020-03-07)
PROC: B2111ZZ Fluoroscopy of Multiple Coronary Arteries using Low Osmolar Contrast (ICD-10-PCS; 2020-03-07)
PROC: B2151ZZ Fluoroscopy of Left Heart using Low Osmolar Contrast (ICD-10-PCS; 2020-03-07)
PROC: 4A033BC Measurement of Arterial Pressure, Coronary, Percutaneous Approach (ICD-10-PCS; 2020-03-07)
DX: A41.9 Sepsis, unspecified organism (principal); J18.9 Pneumonia, unspecified organism; I47.2 Ventricular tachycardia; N12 Tubulo-interstitial nephritis, not specified as acute or chronic; K92.2 Gastrointestinal hemorrhage, unspecified; E44.1 Mild protein-calorie malnutrition; E87.6 Hypokalemia; E11.40 Type 2 diabetes mellitus with diabetic neuropathy, unspecified; E78.5 Hyperlipidemia, unspecified; F32.9 Major depressive disorder, single episode, unspecified; I25.10 Atherosclerotic heart disease of native coronary artery without angina pectoris; Z20.828 Contact with and (suspected) exposure to other viral communicable diseases; Z98.51 Tubal ligation status; Z79.84 Long term (current) use of oral hypoglycemic drugs; Z80.52 Family history of malignant neoplasm of bladder; T18.5XXA Foreign body in anus and rectum, initial encounter
CPT/HCPCS: 36415; 71045; 74018; 80048; 80053; 81001; 82270; 82962; 83735; 83880; 84484; 85025; 85610; 86850; 86900; 86901; 86920; 87081; 87086; 87426; 93306; 93458; 93571; 99152; 99153; C9113; G0378; J0153; J0696; J1815; J2250